=== PATIENT | male | born 1955 | race Caucasian/White ===

== ENCOUNTER 2024-03-06 09:19 | Emergency (ER) | payer MEDICARE ==
[~2024-03-06] VITALS: Ht 172.7 cm; Wt 85.6 kg
[2024-03-06] MEDS ORDERED: CALC-190 PO (09:26)
[2024-03-06] MEDS ORDERED: NAPR220C14 PO (09:26)
[2024-03-06] MEDS ORDERED: SIMV20TA22 PO (09:26)
[2024-03-06] MEDS ORDERED: ECOT81TA5 PO (09:26)
[2024-03-06] MEDS ORDERED: METO1TAB87 PO (09:26)
[2024-03-06] MEDS: METHOCARBAMOL 1,000 MG/10 ML VIAL IV ONE (11:53)
[2024-03-06 12:08] LABS: BASO # 0.1 10^3/uL (0.0-0.2); BASO % 0.6 % (0.0-1.0); EOS # 0.2 10^3/uL (0.0-0.5); HEMATOCRIT 39.7 % (42.0-52.0); LYMPH # 1.7 10^3/uL (1.5-5.0); LYMPH % 15.5 % (24.0-44.0); MEAN CORPUSCULAR HEMOGLOBIN 30.1 pg (27.0-33.0); MEAN CORPUSCULAR HGB CONC 32.7 g/dl (32.0-36.5); MEAN CORPUSCULAR VOLUME 91.9 fl (80.0-96.0); MONO # 0.9 10^3/uL (0.0-0.8); MONO % 8.7 % (2.0-8.0); NEUTROPHILS # 7.8 10^3/uL (1.5-8.5); NEUTROPHILS % 72.9 % (36.0-66.0); PLATELET COUNT, AUTOMATED 465 10^3/uL (150-450); RED BLOOD COUNT 4.32 10^6/uL (4.30-6.10); WHITE BLOOD COUNT 10.7 10^3/uL (4.0-10.0)
[2024-03-06 12:14] LABS: CK-MB VALUE MASS < 1.0 NG/ML (<3.6)
[2024-03-06 12:15] LABS: BLOOD UREA NITROGEN 19 MG/DL (9-23); CALCIUM LEVEL 9.2 MG/DL (8.3-10.6); CARBON DIOXIDE LEVEL 27 MMOL/L (20-31); CHLORIDE LEVEL 104 MMOL/L (98-107); CPK CREATINE PHOSPHOKINASE 35 U/L (46-171); CREATININE FOR GFR 0.75 MG/DL (0.70-1.30); GLOMERULAR FILTRATION RATE > 60.0 (>42); GLUCOSE, FASTING 90 MG/DL (74-106); MB/CK RELATIVE INDEX 2.85 (< OR =4); POTASSIUM SERUM 4.7 MMOL/L (3.5-5.1); SODIUM LEVEL 137 MMOL/L (136-145)
[2024-03-06] MEDS: KETOROLAC 30 MG/ML 1ML VIAL IV ONE (12:45)
[2024-03-06] MEDS: MORPHINE 4 MG/ML 1ML VIAL IV ONE (14:38)
[2024-03-06] MEDS ORDERED: HYDR-3713 PO (15:18)
[2024-03-06 15:37] VITALS: BP 134/84; TEMP 98.5; O2SAT 97
== END 2024-03-06 15:38 | disposition home or self-care (01) ==
LOC: M ED 09:19
DX: M54.6 Pain in thoracic spine (principal); S22.080A Wedge compression fracture of T11-T12 vertebra, initial encounter for closed fracture; S22.050A Wedge compression fracture of T5-T6 vertebra, initial encounter for closed fracture; S22.060A Wedge compression fracture of T7-T8 vertebra, initial encounter for closed fracture; I10 Essential (primary) hypertension; E78.5 Hyperlipidemia, unspecified; Z87.891 Personal history of nicotine dependence; Z88.0 Allergy status to penicillin; Z79.02 Long term (current) use of antithrombotics/antiplatelets; Z79.82 Long term (current) use of aspirin; Z79.899 Other long term (current) drug therapy; Y92.9 Unspecified place or not applicable; Y93.9 Activity, unspecified; Y99.9 Unspecified external cause status
CPT/HCPCS: 72128; 80048; 82550; 82553; 84484; 85025; 93005; 96374; 96375; 99284; J1885; J2800

== ENCOUNTER 2024-03-09 16:41 | Emergency (ER) | payer MEDICARE ==
[~2024-03-09] VITALS: Ht 172.7 cm; Wt 85.3 kg
[~2024-03-09 16:41] MED LIST: CALC-190 PO; ECOT81TA5 PO; HYDR-3713 PO; METO1TAB87 PO; NAPR220C14 PO; SIMV20TA22 PO
[2024-03-09 17:19] LABS: BASO % 0.3 % (0.0-1.0); EOS # 0.1 10^3/uL (0.0-0.5); EOS % 0.9 % (0.0-3.0); HEMATOCRIT 38.2 % (42.0-52.0); HEMOGLOBIN 12.7 g/dl (13.5-17.5); LYMPH # 1.3 10^3/uL (1.5-5.0); LYMPH % 12.2 % (24.0-44.0); MEAN CORPUSCULAR HGB CONC 33.2 g/dl (32.0-36.5); MEAN CORPUSCULAR VOLUME 90.3 fl (80.0-96.0); MONO # 1.2 10^3/uL (0.0-0.8); MONO % 10.9 % (2.0-8.0); NEUTROPHILS % 75.4 % (36.0-66.0); PLATELET COUNT, AUTOMATED 461 10^3/uL (150-450); RED BLOOD COUNT 4.23 10^6/uL (4.30-6.10); WHITE BLOOD COUNT 10.6 10^3/uL (4.0-10.0)
[2024-03-09 17:44] LABS: ERYTHROCYTE SEDIMENTATION RATE > 130 mm/hr (0-20)
[2024-03-09 17:53] LABS: ALBUMIN 2.6 G/DL (3.2-5.2); ALKALINE PHOSPHATASE 130 U/L (46-116); ALT/SGPT 28 U/L (7.0-40); AST/SGOT 17 U/L (<34); BILIRUBIN,TOTAL 0.4 MG/DL (0.3-1.2); BLOOD UREA NITROGEN 14 MG/DL (9-23); CALCIUM LEVEL 9.2 MG/DL (8.3-10.6); CARBON DIOXIDE LEVEL 28 MMOL/L (20-31); CHLORIDE LEVEL 100 MMOL/L (98-107); CREATININE FOR GFR 0.72 MG/DL (0.70-1.30); GLOMERULAR FILTRATION RATE > 60.0 (>42); GLUCOSE, FASTING 116 MG/DL (74-106); POTASSIUM SERUM 4.5 MMOL/L (3.5-5.1); SODIUM LEVEL 135 MMOL/L (136-145); TOTAL PROTEIN 6.9 G/DL (5.7-8.2)
[2024-03-09] MEDS ORDERED: PROHANCE 279.3MG/ML 5ML VIAL As Ordered ONE (18:46)
[2024-03-09] MEDS ORDERED: PROHANCE 279.3MG/ML 15ML VIAL As Ordered ONE (18:46)
[2024-03-09] MEDS: MORPHINE 4 MG/ML 1ML VIAL IV ONE (20:21)
[2024-03-09] MEDS: NS 1,000 ML IV ONE (20:21)
[2024-03-09] MEDS: ONDANSETRON 4MG 2ML VIAL IV ONE (20:21)
[2024-03-09] MEDS ORDERED: VANCOMYCIN HCL 1,750 MG in NS 250 ML IV ONE (20:40)
[2024-03-09] MEDS: VANCOMYCIN HCL 1,000 MG, VIAL MATE ADAPTER 1 EACH in D5W 250 ML IV ONE (20:55)
[2024-03-09] MEDS: VANCOMYCIN HCL 750 MG, VIAL MATE ADAPTER 1 EACH in D5W 250 ML IV ONE (22:07)
[2024-03-09 23:03] VITALS: BP 137/87; TEMP 98.6; O2SAT 94
== END 2024-03-09 23:07 | disposition short-term general hospital (02) ==
LOC: M ED 16:41
DX: M46.24 Osteomyelitis of vertebra, thoracic region (principal); G95.29 Other cord compression; G06.2 Extradural and subdural abscess, unspecified; M46.44 Discitis, unspecified, thoracic region; M48.04 Spinal stenosis, thoracic region; E78.5 Hyperlipidemia, unspecified; I10 Essential (primary) hypertension; Z88.0 Allergy status to penicillin; Z96.653 Presence of artificial knee joint, bilateral; Z79.82 Long term (current) use of aspirin; Z79.899 Other long term (current) drug therapy
CPT/HCPCS: 72157; 80053; 85025; 85652; 86140; 87040; 87077; 87186; 96361; 96365; 96375; 99284; A9576; J2405; J3370

== ENCOUNTER → 2024-08-30 | Outpatient (CLI) | payer MEDICARE | LOC: M RAD 12:39 | PROVIDERS: ATTEND Neurological Surgery | DX: Z98.890 Other specified postprocedural states (principal); Z48.811 Encounter for surgical aftercare following surgery on the nervous system ==

== ENCOUNTER → 2025-08-28 | Outpatient (CLI) | payer MEDICARE | LOC: M RAD 09:13 | PROVIDERS: ATTEND Neurological Surgery | DX: M47.812 Spondylosis without myelopathy or radiculopathy, cervical region (principal); M50.222 Other cervical disc displacement at C5-C6 level; M48.02 Spinal stenosis, cervical region ==